=== PATIENT | male | born 2005 | race Caucasian/White ===

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

== ENCOUNTER → 2024-02-15 | Outpatient (REF) | payer OTHER | LOC: M SFHCPLAZ 08:07 | PROVIDERS: ATTEND Nurse Practitioner Family | DX: R61 Generalized hyperhidrosis (principal) ==